=== PATIENT | male | born 1970 | race Caucasian/White ===

== ENCOUNTER 2016-12-29 22:31 | Inpatient (IN) | payer MEDICARE, OTHER ==
[~2016-12-29] VITALS: Ht 190.5 cm; Wt 103.0 kg
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
[2016-12-29 23:13] VITALS: BP 145/68; PULSE 88; RESP 20; TEMP 98; O2SAT 98
[2016-12-29 23:15] VITALS: BP 148/72; PULSE 88; RESP 20; O2SAT 98
[2016-12-29 23:38] LABS: AUTOMATED NEUTROPHIL # 7.4 TH/MM3 (1.8-7.7); BASOPHIL % 0.2 % (0.0-2.0); EOSINOPHIL # 0.1 TH/MM3 (0-0.4); EOSINOPHIL % 0.7 % (0.0-4.0); HEMATOCRIT 49.1 % (39.0-51.0); HEMO FLAGS DIFF FINAL; LYMPH % 20.4 % (9.0-44.0); LYMPHOCYTE # 2.2 TH/MM3 (1.0-4.8); MEAN CELL VOLUME 91.3 FL (80.0-100.0); MEAN CORPUSCULAR HEMOGLOBIN 30.3 PG (27.0-34.0); MEAN CORPUSCULAR HGB CONC 33.2 % (32.0-36.0); MONO % 9.4 % (0.0-8.0); NEUT % 69.3 % (16.0-70.0); PLATELET COUNT 158 TH/MM3 (150-450); RED BLOOD COUNT 5.37 MIL/MM3 (4.50-5.90); RED CELL DISTRIBUTION WIDTH 13.3 % (11.6-17.2); WHITE BLOOD COUNT 10.6 TH/MM3 (4.0-11.0)
[2016-12-29 23:43] LABS: AMPHETAMINE, URINE NEG (NEG); BARBITURATES, URINE NEG (NEG)
[2016-12-29 23:47] LABS: COCAINE, URINE NEG (NEG)
[2016-12-29 23:51] LABS: ANION GAP 12 MEQ/L (5-15)
[2016-12-29 23:54] LABS: ALKALINE PHOSPHATASE 70 U/L (45-117); ALT (GPT) 29 U/L (12-78); AST (GOT) 11 U/L (15-37); BLOOD UREA NITROGEN 14 MG/DL (7-18); CHLORIDE 107 MEQ/L (98-107); GLOMERULAR FILTRATION RATE 86 ML/MIN (>89); POTASSIUM 3.5 MEQ/L (3.5-5.1); SODIUM (NA) 142 MEQ/L (136-145); TOTAL BILIRUBIN ADULT 0.3 MG/DL (0.2-1.0)
[2016-12-30 01:19] VITALS: BP 169/95; PULSE 88; RESP 18; TEMP 97.4; O2SAT 99
[2016-12-30 06:16] VITALS: BP 145/91; PULSE 78; RESP 18; TEMP 97.2; O2SAT 97
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
[2016-12-30] MEDS ORDERED: MAGNESIUM HYDROXIDE SUSP 30 ML CUP PO PRN (12:45)
[2016-12-30] MEDS ORDERED: ALUMINUM/MAGNESIUM/SIMETH 30 ML CUP PO PRN (12:45)
[2016-12-30] MEDS ORDERED: ACETAMINOPHEN 325 MG TAB PO PRN (12:45)
[2016-12-30 15:46] VITALS: BP 143/71; PULSE 66; RESP 18; TEMP 99.1; O2SAT 100
[2016-12-30 19:16] VITALS: BP 144/75; PULSE 83; RESP 16; TEMP 99.1; O2SAT 98
[2016-12-30] MEDS: traZODone HCL 50 MG TAB PO PRN (22:07)
[2016-12-31 06:15] VITALS: BP 115/56; PULSE 51; RESP 16; TEMP 97.5; O2SAT 96
[2016-12-31 08:05] LABS: ANION GAP 7 MEQ/L (5-15); BICARBONATE 28.8 MEQ/L (21.0-32.0); BLOOD UREA NITROGEN 14 MG/DL (7-18); CHLORIDE 106 MEQ/L (98-107); GLOMERULAR FILTRATION RATE 99 ML/MIN (>89); HDL CHOLESTEROL 37.8 MG/DL (40.0-60.0); LDL CHOLESTEROL 149 MG/DL (0-99); POTASSIUM 3.9 MEQ/L (3.5-5.1); SODIUM (NA) 142 MEQ/L (136-145)
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
[2016-12-31] MEDS: FLUoxetine HCL 20 MG CAP PO SCH (14:12)
[2016-12-31 19:00] VITALS: BP 122/63; PULSE 104; RESP 19; TEMP 98
[2016-12-31] MEDS: clonazePAM 1 MG TAB PO SCH (20:40)
[2016-12-31] MEDS: DIVALPROEX SODIUM E.R. 500 MG TAB PO SCH (20:40)
[2017-01-01 05:38] VITALS: BP 150/74; PULSE 90; RESP 17; TEMP 98.6
[2017-01-01] MEDS: clonazePAM 1 MG TAB PO SCH ×2 (08:59→20:30)
[2017-01-01] MEDS: FLUoxetine HCL 20 MG CAP PO SCH (08:59)
[2017-01-01 09:29] LABS: HEMOGLOBIN A1b 1.7 %; HEMOGLOBIN Ao 84.2 %; HEMOGLOBIN LA1C 2.2 %
--- NOTE | 2017-01-01 12:09 | HHI.PYPN ---
Subjective Remarks Pt seen and discussed with staff. Pt was transferred to 2700 unit yesterday after he became agitated and aggressive on 2600 unit. Pt signed ROR, but now states that he wishes to remain in the hospital for treatment. "I can't go out like this. It's not safe." He started Depakote last night and reports that for the first time in weeks, he slept through the night. "It was wonderful. I haven' t been sleeping at all for the past weeks and before that I never really slept good." He reports long hx of mood lability and agitation and non-compliance with outpatient care. He reports he is "ready to get help this time." Staff report that pt has been in better behavioral control today. He remains irritable and is still somewhat labile, but improved. He denies medication side effects. Objective Alert: Yes [place]: Person, Place, Date, Situation Mood: Depressed, Other (irritable) Affect: Restricted Memory Intact: Comment (intact) Hallucinations: Other (none) Delusions: No Delusion Type: Other (none) Suicidal: Ideation (denies) Homicidal: Ideation (denies) Insight/Judgement limited Vitals/IOs Vital Signs Date Time Temp Pulse Resp B/P Pulse Ox O2 Delivery O2 Flow Rate FiO2 01/01/17 05:38 98.6 90 17 150/74 12/31/16 06:15 96 12/30/16 06:16 Room Air Assessment & Plan Problem List: (1) Major depression, recurrent, chronic ICD Code: F33.9 Assessment & Plan Continue current tx plan. Estimated LOS: days Justification for Cont. Inpt. impairments in safety and social functioning Dian Gayle MD Jan 01, 2017 12:09
[2017-01-01 17:04] VITALS: BP 147/57; PULSE 74; RESP 18; TEMP 97.8; O2SAT 98
[2017-01-01] MEDS: DIVALPROEX SODIUM E.R. 500 MG TAB PO SCH (20:30)
[2017-01-01] MEDS: traZODone HCL 50 MG TAB PO PRN (20:31)
[2017-01-02] MEDS: clonazePAM 1 MG TAB PO SCH ×3 (08:44→20:16)
[2017-01-02] MEDS: FLUoxetine HCL 20 MG CAP PO SCH (08:44)
[2017-01-02 08:46] VITALS: BP 137/81; PULSE 83; RESP 20; TEMP 97.9; O2SAT 97
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
[2017-01-02 17:56] VITALS: BP 140/66; PULSE 87; RESP 18; TEMP 97.6; O2SAT 95
[2017-01-02] MEDS: DIVALPROEX SODIUM E.R. 500 MG TAB PO SCH (20:16)
[2017-01-02] MEDS: traZODone HCL 50 MG TAB PO PRN (20:16)
[2017-01-03] MEDS: clonazePAM 1 MG TAB PO SCH ×3 (09:10→20:20)
[2017-01-03] MEDS: FLUoxetine HCL 10 MG CAP PO SCH (09:11)
--- NOTE | 2017-01-03 14:15 | HHI.PYPN ---
Subjective Remarks Patient seen and examined. Chart reviewed. Nursing notes reviewed. On my examination today, the patient reports that he is pleased to be back on the lower acuity unit. He is doing well on the unit. Anxiety/irritability lessening. No SI or HI. Denies side effects from medications. He is worried about the cost of the Depakote ER as he does not have pharmacy benefits, and we discuss switching to less costly Depakote DR, and the patient is in agreement with this. Hopeful for discharge tomorrow. Review of Systems Other No physical complaints today. Objective Alert: Yes [place]: Person, Place, Date, Situation Mood: Calm Affect: Blunted Memory Intact: Comment (intact on clinical exam) Hallucinations: Other (no AVH) Delusions: No Delusion Type: Other (no delusions) Suicidal: Ideation (no SI) Homicidal: Ideation (no HI) Insight/Judgement Fair Remarks No abnormal motor movements noted. Thought process linear. Labs Labs reviewed. No new labs. Vitals/IOs Vital Signs Date Time Temp Pulse Resp B/P Pulse Ox O2 Delivery O2 Flow Rate FiO2 01/02/17 17:56 97.6 87 18 140/66 95 Assessment & Plan Problem List: (1) Anxiety disorder ICD Code: F41.9 (2) Intermittent explosive disorder ICD Code: F63.81 Assessment & Plan Switch Depakote ER to Depakote DR 500 mg twice daily. Continue other psychotropics as ordered. Continue other medications and care as ordered. Justification for Cont. Inpt. Monitor overnight. Final discharge planning. Discharge Planning Monitor overnight. Anticipate discharge tomorrow barring some clinical worsening. I have instructed the counselor to arrange for psychiatric follow- up as well as transportation for the patient back to his home. Request HC Surrog/Guard Advoc?: No Problem Qualifiers (1) Anxiety disorder: Qualified Code: F41.3 - Other mixed anxiety disorders Jose Lou MD Jan 03, 2017 14:15
[2017-01-03 17:23] VITALS: BP 142/72; PULSE 77; RESP 16; TEMP 98.3; O2SAT 96
[2017-01-03] MEDS: DIVALPROEX DR 500 MG TABEC PO SCH (20:20)
[2017-01-03] MEDS: traZODone HCL 50 MG TAB PO PRN (21:05)
[2017-01-04 04:00] VITALS: BP 118/57; PULSE 67; RESP 18; TEMP 98.1; O2SAT 96
[2017-01-04] MEDS: DIVALPROEX DR 500 MG TABEC PO SCH (08:48)
[2017-01-04] MEDS: FLUoxetine HCL 10 MG CAP PO SCH (08:49)
[2017-01-04] MEDS: clonazePAM 1 MG TAB PO SCH ×2 (08:49→12:34)
[2017-01-04] MEDS ORDERED: CLON1 PO ×2 (10:41→11:03)
[2017-01-04] MEDS ORDERED: FLUO-1 PO (10:41)
[2017-01-04] MEDS ORDERED: DIVA500T PO (10:41)
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
== END 2017-01-04 14:30 | disposition home or self-care (01) | DRG 883 ==
LOC: NEPA 22:31 → NEDA 12-30 12:38 → H260 12-30 15:10 → H270 12-31 15:56 → H260 01-02 22:16
PROVIDERS: ADMIT Psychiatry & Neurology Psychiatry; ATTEND Psychiatry & Neurology Psychiatry
DX: F63.81 Intermittent explosive disorder (principal); F41.9 Anxiety disorder, unspecified; F19.10 Other psychoactive substance abuse, uncomplicated; F60.2 Antisocial personality disorder; F60.81 Narcissistic personality disorder
CPT/HCPCS: 80048; 80053; 80061; 80307; 83036; 85025; 99285

== ENCOUNTER 2018-02-14 13:47 | Inpatient (IN) | payer MEDICARE, OTHER ==
[~2018-02-14] VITALS: Ht 190.5 cm; Wt 105.5 kg
[2018-02-14] VITALS (10 sets, daily range): BP systolic 132–143; BP diastolic 70–88; PULSE 83–104; RESP 18–20; TEMP 98–98.3; O2SAT 96–99
[~2018-02-14 13:47] MED LIST: CLON1 PO; DIVA500T PO; FLUO-1 PO
[2018-02-14] MEDS ORDERED: SODIUM CHLOR 0.9% 1000 ML INJ 1,000 ML IV ONE ×2 (14:30→14:45)
--- NOTE | 2018-02-14 14:40 | RADRPT ---
EXAM DATE/TIME: 02/14/2018 14:05 [facility] COMPARISON: No previous studies available for comparison. INDICATIONS : Syncopal episode with fall RADIATION DOSE: 67.23 CTDIvol (mGy) MEDICAL HISTORY : None SURGICAL HISTORY : None. ENCOUNTER: Initial ACUITY: 1 day PAIN SCALE: 0/10 LOCATION: cranial TECHNIQUE: Multiple contiguous axial images were obtained of the head. Using automated exposure control and adj ustment of the mA and/or kV according to patient size, radiation dose was kept as low as reasonably a chievable to obtain optimal diagnostic quality images. DICOM format image data is available electro nically for review and comparison. FINDINGS: CEREBRUM: The ventricles are normal for age. No evidence of midline shift, mass lesion, hemorrhage or acute in farction. No extra-axial fluid collections are seen. POSTERIOR FOSSA: The cerebellum and brainstem are intact. The 4th ventricle is midline. The cerebellopontine angle i s unremarkable. EXTRACRANIAL: The visualized portion of the orbits is intact. SKULL: The calvaria is intact. No evidence of skull fracture. CONCLUSION: 1. No acute intracranial abnormality identified. Chuckie Pacheco MD on February 14, 2018 at 14:36 Board Certified Radiologist. This report was verified electronically.
--- NOTE | 2018-02-14 14:43 | PD ---
HPI Chief Complaint: Chest Pain Time Seen by Provider: 13:51 Travel History International Travel<30 days: No Contact w/Intl Traveler<30days: No Traveled to known affect area: No History of Present Illness HPI 47 y/o male states that he was mowing the lawn and developed chest pain. He developed a syncopal episode and had a witnessed approximately 15 second episode of seizure. After the seizure he was awake and talking without a postictal phase per the ambulance team that got this information from bystanders. He is complaining again about his chest and his neck and was placed in a c-collar. He presented as a STEMI alert given he had changes on his EKG that were concerning. History is limited from patient as he does not recall syncopal event. PFSH Past Medical History Bipolar Disorder: Yes Anxiety: Yes Depression: Yes Cancer: No Cardiovascular Problems: No Diabetes: No Diminished Hearing: No Endocrine: Yes Gastrointestinal Disorders: No Genitourinary: No Headaches: No Heparin Induced Thrombocytopen: No Hypertension: Yes Immune Disorder: No Implanted Vascular Access Dvce: No Musculoskeletal: No Neurologic: No Psychiatric: Yes (Intermittent Explosive Disorder ) Reproductive: No Respiratory: No Immunizations Current: Yes Seizures: No Sickle Cell Disease: No Tetanus Vaccination: Unknown Past Surgical History Abdominal Surgery: Yes (EXPL. SURGERY) Cardiac Surgery: No Ear Surgery: No Endocrine Surgery: No Eye Surgery: No Genitourinary Surgery: No Gynecologic Surgery: No Neurologic Surgery: No Oral Surgery: No Thoracic Surgery: No Other Surgery: Yes Social History Alcohol Use: Yes (ON OCCASION) Tobacco Use: No Substance Use: Yes (MARIJUANA AT TIMES) Allergies-Medications (Allergen,Severity, Reaction): Coded Allergies: No Known Allergies (Unverified Allergy, Unknown, 02/14/18) Reported Meds & Prescriptions Reported Meds & Active Scripts Active No Active Prescriptions or Reported Medications Review of Systems Except as stated in HPI: all other systems reviewed are Neg Physical Exam Narrative GENERAL: 47 y/o male in no apparent distress SKIN: Focused skin assessment warm/dry. HEAD: Atraumatic. Normocephalic. EYES: Pupils equal and round. No scleral icterus. No injection or drainage. ENT: No nasal bleeding or discharge. Mucous membranes pink and moist. NECK: Trachea midline. CARDIOVASCULAR: Regular rate and rhythm. No murmur appreciated. RESPIRATORY: No accessory muscle use. Clear to auscultation. Breath sounds equal bilaterally. GASTROINTESTINAL: Abdomen soft, non-tender, nondistended. MUSCULOSKELETAL: No obvious deformities. No clubbing. No cyanosis. No edema. NEUROLOGICAL: Awake and alert. No obvious cranial nerve deficits. Motor grossly within normal limits. Normal speech. PSYCHIATRIC: Appropriate mood and affect; insight and judgment normal. Data Data Last Documented VS Vital Signs Date Time Temp Pulse Resp B/P (MAP) Pulse Ox O2 Delivery O2 Flow Rate FiO2 02/14/18 14:28 87 20 132/70 (90) 97 Nasal Cannula 2.00 02/14/18 13:49 98.3 Orders Orders Magnesium (Mg) (02/14/18 13:51) Phosphorus (Po4) (02/14/18 13:51) Complete Blood Count With Diff (02/14/18 13:51) Comprehensive Metabolic Panel (02/14/18 13:51) Ckmb (Isoenzyme) Profile (02/14/18 13:51) Troponin I (02/14/18 13:51) Act Partial Throm Time (Ptt) (02/14/18 13:51) Prothrombin Time / Inr (Pt) (02/14/18 13:51) Ct Brain W/O Iv Contrast(Rout) (02/14/18 ) Chest, Single Ap (02/14/18 ) Electrocardiogram (02/14/18 ) Iv Access Insert/Monitor (02/14/18 13:51) Ecg Monitoring (02/14/18 13:51) Oximetry (02/14/18 13:51) Ct Cerv Spine W/O Contrast (02/14/18 ) I-Stat Profile (02/14/18 13:55) I-Stat Creatinine (02/14/18 13:55) Consult Cardiology (02/14/18 ) (Hub Use Only)Inp Phy Cons/Ref (02/14/18 ) I-Stat Creatinine (02/14/18 14:23) Drug Screen, Random Urine (02/14/18 14:27) Sodium Chlor 0.9% 1000 Ml Inj (Ns 1000 M (02/14/18 14:30) Nitroglycerin-D5w 50 Mg/250 Ml (Nitrogly (02/14/18 16:00) Sodium Chlor 0.9% 1000 Ml Inj (Ns 1000 M (02/14/18 14:45) Cardiac Catheterization (02/14/18 ) Admit Order (Ed Use Only) (02/14/18 14:57) Labs Laboratory Tests Test 02/14/18 14:30 White Blood Count 13.5 TH/MM3 Red Blood Count 4.44 MIL/MM3 Hemoglobin 13.8 GM/DL Hematocrit 40.9 % Mean Corpuscular Volume 92.1 FL Mean Corpuscular Hemoglobin 31.2 PG Mean Corpuscular Hemoglobin Concent 33.9 % Red Cell Distribution Width 12.9 % Platelet Count 175 TH/MM3 Mean Platelet Volume 8.5 FL Neutrophils (%) (Auto) 84.1 % Lymphocytes (%) (Auto) 9.6 % Monocytes (%) (Auto) 5.5 % Eosinophils (%) (Auto) 0.3 % Basophils (%) (Auto) 0.5 % Neutrophils # (Auto) 11.4 TH/MM3 Lymphocytes # (Auto) 1.3 TH/MM3 Monocytes # (Auto) 0.7 TH/MM3 Eosinophils # (Auto) 0.0 TH/MM3 Basophils # (Auto) 0.1 TH/MM3 CBC Comment DIFF FINAL Differential Comment Bedside Creatinine 2.1 MG/DL [facility] Medical Decision Making Medical Screen Exam Complete: Yes Emergency Medical Condition: Yes Medical Record Reviewed: Yes ([facility] confirmed) Interpretation(s) EMS EKG is sinus rhythm at 100, hyperacute T V2, mild ST depression aVR and lead I ER EKG is sinus rhythm at 100 without STEMI criteria, similar changes to EMS EKG although less pronounced I stats reviewed and K is elevated likely to hemolysis and on repeat is normal. Creatinine is elevated at 2.2 which was still this on repeat CBC & BMP Diagram 02/14/18 14:30 Last [address] 02/14/18 0000 Signed Impressions: Service Date/Time: Wednesday, February 14, 2018 14:05 - CONCLUSION: 1. No acute intracranial abnormality identified. Chuckie Pacheco MD Differential Diagnosis RI, arrhythmia, bleed, electrolyte abnormality, vasospasm Narrative Course Will check I stats and discuss with hr generalist given concerning story although EKG does not show STEMI here. Patient updated after CT and agrees to cardiac catheterization and admission. Nitroglycerin drip ordered for pain. Critical Care Narrative Aggregate critical care time was 45 minutes. Time to perform other separately billable procedures was not included in the critical care time. My time did not include minutes spent treating any other patients simultaneously or on activities that did not directly contribute to the patient's treatment. The services I provided to this patient were to treat and/or prevent clinically significant deterioration that could result in: mi, I provided critical care services requiring my management, as noted below: Chart data review, documentation time, medication orders and management, vital sign assessments/reviewing monitor data, ordering and reviewing lab tests, ordering and interpreting/reviewing x-rays and diagnostic studies, care of the patient and discussion of the patient with the admitting physicians. Physician Communication Physician Communication dr fregoso states will take for urgent cath after ct, no stemi on ekg dr fregoso updated about labs, given story will need cardiac intervention still discussed with radiologist at 1438 and states no bleed or fracture on imaging dr fregoso updated at bedside, will give meds in labor law professor dr hurd agrees to admit Diagnosis Primary Impression: Chest pain Qualified Codes: R07.9 - Chest pain, unspecified Additional Impression: Syncope Qualified Codes: R55 - Syncope and collapse Admitting Information Admitting Physician Requests: Observation Scripts No Active Prescriptions or Reported Meds Iris Tariq MD February 14, 2018 14:43
[2018-02-14 14:49] LABS: AUTOMATED NEUTROPHIL # 11.4 TH/MM3 (1.8-7.7); BASOPHIL # 0.1 TH/MM3 (0-0.2); BASOPHIL % 0.5 % (0.0-2.0); EOSINOPHIL % 0.3 % (0.0-4.0); HEMATOCRIT 40.9 % (39.0-51.0); HEMOGLOBIN 13.8 GM/DL (13.0-17.0); LYMPH % 9.6 % (9.0-44.0); LYMPHOCYTE # 1.3 TH/MM3 (1.0-4.8); MEAN CELL VOLUME 92.1 FL (80.0-100.0); MEAN CORPUSCULAR HEMOGLOBIN 31.2 PG (27.0-34.0); MEAN CORPUSCULAR HGB CONC 33.9 % (32.0-36.0); MEAN PLATELET VOLUME 8.5 FL (7.0-11.0); MONO % 5.5 % (0.0-8.0); MONOCYTE # 0.7 TH/MM3 (0-0.9); NEUT % 84.1 % (16.0-70.0); PLATELET COUNT 175 TH/MM3 (150-450); RED BLOOD COUNT 4.44 MIL/MM3 (4.50-5.90); RED CELL DISTRIBUTION WIDTH 12.9 % (11.6-17.2); WHITE BLOOD COUNT 13.5 TH/MM3 (4.0-11.0)
--- NOTE | 2018-02-14 14:54 | RADRPT ---
EXAM DATE/TIME: 02/14/2018 14:43 [facility] COMPARISON: No previous studies available for comparison. INDICATIONS : Syncope,. MEDICAL HISTORY : None. SURGICAL HISTORY : None. ENCOUNTER: Initial ACUITY: 1 day PAIN SCORE: 0/10 LOCATION: Bilateral cranial FINDINGS: A single view of the chest demonstrates the lungs to be symmetrically aerated without evidence of mas s, infiltrate or effusion. The cardiomediastinal contours are unremarkable. Osseous structures are intact. CONCLUSION: 1. No acute cardiopulmonary disease. Ryan Doshi MD on February 14, 2018 at 14:52 Board Certified Radiologist. This report was verified electronically.
--- NOTE | 2018-02-14 14:54 | RADRPT ---
EXAM DATE/TIME: 02/14/2018 14:05 [facility] COMPARISON: No previous studies available for comparison. INDICATIONS : Syncopal episode with fall RADIATION DOSE: 18.13 CTDIvol (mGy) MEDICAL HISTORY : None SURGICAL HISTORY : None. ENCOUNTER: Initial ACUITY: 1 day PAIN SCALE: 0/10 LOCATION: neck TECHNIQUE: Volumetric scanning of the cervical spine was performed. Multiplanar reconstructions in the sagittal, coronal and oblique axial planes were performed. Using automated exposure control and adjustment o f the mA and/or kV according to patient size, radiation dose was kept as low as reasonably achievable to obtain optimal diagnostic quality images. DICOM format image data is available electronically f or review and comparison. FINDINGS: There is normal sagittal spine alignment of the cervical spine. No anterolisthesis or retrolisthesis is present. The atlantoaxial relationship is within normal limits. There is no prevertebral soft tiss ue swelling present. No fracture or dislocation is identified. There is decreased disc height at C5-C 6 and more severely at C6-C7 with posterior disc osteophyte complex. No definite canal stenosis is se en. The visualized portions of the posterior fossa, paraspinous soft tissues, and upper lung zones demons trate no acute abnormality. CONCLUSION: 1. No acute cervical spine abnormality is identified. 2. There is degenerative disc disease at C5-C6 and C6-C7. El Jarrell MD on February 14, 2018 at 14:38 Board Certified Radiologist. This report was verified electronically.
[2018-02-14] MEDS ORDERED: IOHEXOL 350 MG/ML 50 ML BTL (for Cath Lab) OTHER ONE (14:59)
[2018-02-14 15:09] LABS: INTERNATIONAL NORMALIZED RATIO 1.1 RATIO
[2018-02-14] MEDS ORDERED: HEPARIN-NS/PF FLUSH BAG 2,000 ML IV FLUSH ONE (15:09)
[2018-02-14] MEDS ORDERED: MIDAZOLAM HCL 2 MG/2 ML VIAL ONE (15:11)
[2018-02-14] MEDS ORDERED: LIDOCAINE HCL 1% PF 30 ML VIAL ONE (15:14)
--- NOTE | 2018-02-14 15:25 | HHI.HP ---
HPI Service [facility] Primary Care Physician Unknown Admission Diagnosis chest pain, syncope Diagnoses: Chief Complaint: chest pain , syncope Travel History International Travel<30 Days: No Contact w/Intl Traveler <30 Da: No Traveled to Known Affected Are: No History of Present Illness 47-year-old male with significant psychiatry history presented to the ED today with chest pain and syncope event. Patient was doing mowing the lawn when he developed chest pain, lasted for a few minutes patient felt dizzy, the pain was more in the center toward the right 7-8 out of 10 More of heaviness pressure feeling, later on patient fainted for probably 30 seconds and then he woke up according to the witnesses who told the ED physician patient was having some possible jerking movement, his EKG showed some ST elevation in lead I and AVl, cardiology consulted from ED he did not think this is a STEMI alert as initially patient was presented with, but due to the syncope that might be an arrhythmia so patient is going to cath at this point by this time I am doing this dictation. When I saw the patient he was in next nebulizer due to the syncope and falling down, CT of the head showed no bleeding, no other associating symptoms has been reported by the patient, I also discussed with Dr. Duran the stage producer Past Family Social History Past Medical History Bipolar Anxiety Depression Hypertension Abdominal exploratory surgery Past Surgical History As above Allergies: Coded Allergies: No Known Allergies (Unverified Allergy, Unknown, 02/14/18) Family History Review with the patient,not aware of significant medical history related to her problem runs in the family Social History Denied tobacco alcohol or illicit drug abuse Physical Exam Vital Signs Vital Signs Date Time Temp Pulse Resp B/P (MAP) Pulse Ox O2 Delivery O2 Flow Rate FiO2 02/14/18 14:28 87 20 132/70 (90) 97 Nasal Cannula 2.00 02/14/18 14:00 90 20 97 Nasal Cannula 02/14/18 13:58 97 Nasal Cannula 2.00 02/14/18 13:49 98.3 97 20 143/84 (103) 99 Physical Exam GENERAL: This is a well-nourished, well-developed patient, in no apparent distress. SKIN: No rashes, warm and dry HEAD: Atraumatic. Normocephalic. EYES: Pupils equal round and reactive. Extraocular motions intact. No scleral icterus. ENT: Nose without bleeding, or drainage, Airway patent. NECK: Trachea midline. Supple CARDIOVASCULAR: Regular rate and rhythm without murmurs, gallops, or rubs. RESPIRATORY: Fair air entry bilaterally. No wheezes, rales, or rhonchi. GASTROINTESTINAL: Abdomen soft, non-tender, nondistended. Positive bowel sounds MUSCULOSKELETAL: Extremities without clubbing, cyanosis, or edema. Pedal pulses appreciated NEUROLOGICAL: Awake and alert. Moves all extremity. Normal speech.no focal neurological deficit Laboratory Laboratory Tests Test 02/14/18 14:30 White Blood Count 13.5 Red Blood Count 4.44 Hemoglobin 13.8 Hematocrit 40.9 Mean Corpuscular Volume 92.1 Mean Corpuscular Hemoglobin 31.2 Mean Corpuscular Hemoglobin Concent 33.9 Red Cell Distribution Width 12.9 Platelet Count 175 Mean Platelet Volume 8.5 Neutrophils (%) (Auto) 84.1 Lymphocytes (%) (Auto) 9.6 Monocytes (%) (Auto) 5.5 Eosinophils (%) (Auto) 0.3 Basophils (%) (Auto) 0.5 Neutrophils # (Auto) 11.4 Lymphocytes # (Auto) 1.3 Monocytes # (Auto) 0.7 Eosinophils # (Auto) 0.0 Basophils # (Auto) 0.1 CBC Comment DIFF FINAL Differential Comment Prothrombin Time 11.0 Prothromb Time International Ratio 1.1 Activated Partial Thromboplast Time 23.8 Bedside Creatinine 2.1 Result Diagram: 02/14/18 1430 Imaging Last Impressions Head CT 02/14/18 0000 Signed Impressions: Service Date/Time: Wednesday, February 14, 2018 14:05 - CONCLUSION: 1. No acute intracranial abnormality identified. Chuckie Pacheco MD Chest X-Ray 02/14/18 0000 Signed Impressions: Service Date/Time: Wednesday, February 14, 2018 14:43 - CONCLUSION: 1. No acute cardiopulmonary disease. Ryan Doshi MD Cervical Spine CT 02/14/18 0000 Signed Impressions: Service Date/Time: Wednesday, February 14, 2018 14:05 - CONCLUSION: 1. No acute cervical spine abnormality is identified. 2. There is degenerative disc disease at C5-C6 and C6-C7. MD Quintin Leon VTE Risk Assessment Caprini VTE Risk Assessment: Mod/High Risk (score >= 2) Caprini Risk Assessment Model Point Value = 1 Point Value = 2 Point Value = 3 Point Value = 5 Age 41-60 Minor surgery BMI > 25 kg/m2 Swollen legs Varicose veins or History of unexplained or recurrent spontaneous Oral contraceptives or hormone replacement Sepsis (< 1 month) Serious lung disease, including pneumonia (< 1 month) Abnormal pulmonary function Acute myocardial infarction Congestive heart failure (< 1 month) History of inflammatory bowel disease Medical patient at bed rest Age 61-74 Arthroscopic surgery Major open surgery (> 45 min) Laparoscopic surgery (> 45 min) Malignancy Confined to bed (> 72 hours) Immobilizing plaster cast Central venous access Age >= 75 History of VTE Family history of VTE Factor V Leiden Prothrombin [id number] Lupus anticoagulant Anticardiolipin antibodies Elevated serum homocysteine Heparin-induced thrombocytopenia Other congenital or acquired thrombophilia Stroke (< 1 month) Elective arthroplasty Hip, pelvis, or leg fracture Acute spinal cord injury (< 1 month) Prophylaxis Regimen Total Risk Factor Score Risk Level Prophylaxis Regimen 0-1 Low Early ambulation 2 Moderate Order ONE of the following: *Sequential Compression Device (SCD) *Heparin 5000 units SQ BID 3-4 Higher Order ONE of the following medications: *Heparin 5000 units SQ TID *Enoxaparin/Lovenox 40 mg SQ daily (WT < 150 kg, CrCl > 30 mL/min) *Enoxaparin/Lovenox 30 mg SQ daily (WT < 150 kg, CrCl > 10-29 mL/min) *Enoxaparin/Lovenox 30 mg SQ BID (WT < 150 kg, CrCl > 30 mL/min) AND/OR *Sequential Compression Device (SCD) 5 or more Highest Order ONE of the following medications: *Heparin 5000 units SQ TID (Preferred with Epidurals) *Enoxaparin/Lovenox 40 mg SQ daily (WT < 150 kg, CrCl > 30 mL/min) *Enoxaparin/Lovenox 30 mg SQ daily (WT < 150 kg, CrCl > 10-29 mL/min) *Enoxaparin/Lovenox 30 mg SQ BID (WT < 150 kg, CrCl > 30 mL/min) AND *Sequential Compression Device (SCD) Assessment and Plan Assessment and Plan 47 years old male admitted with Acute chest pain rule out ACS Acute syncope rule out cardiogenic arrhythmia versus seizure History of bipolar disease and anxiety depression DVT prophylaxis Plan: Admit for observation Cardiology consultation appreciated EKG personally reviewed showed mild ST elevation in lead I and aVL, slightly peaked T-wave in lateral leads Discussed with cardiology , does not fit any criteria Oxygen, aspirin, morphine, nitroglycerin Patient pending to urgent heart cath right now CT head personally reviewed no bleeding DVT prophylaxis with heparin when okay with cardiology post heart cath Discussed Condition With Physician in ED Arie Corbin MD February 14, 2018 15:25
[2018-02-14] MEDS ORDERED: MORPHINE SULFATE 2 MG/ML SYRINGE IV PUSH PRN (15:30)
[2018-02-14] MEDS ORDERED: NALOXONE HCL 0.4 MG/ML AMP IV PUSH PRN (15:30)
[2018-02-14] MEDS ORDERED: ACETAMINOPHEN/HYDROcodone 325 MG/5 MG TAB PO PRN (15:30)
[2018-02-14] MEDS ORDERED: ONDANSETRON HCL 4 MG/2 ML VIAL IVP PRN (15:30)
--- NOTE | 2018-02-14 15:53 | CATHPROC ---
[employer] HIS Report Study Information Study Number Admission Scheduled Start Study Start [id number] Feb 14 2018 1:47PM 02/14/2018 Feb 14 2018 2:47PM [facility] Service Cardiac Catheterization Admit Source Facility Department Emergency department [facility] - [facility] Physician and Clinical Staff Initial MD Duran, Saran Insurance Managerdionisio Ortiz RN, Nikita Recorder Student, ASSET PROTECTION LEAD/RT(R) ScrJasmin Yancey ,RT(R) Procedures Performed Procedure Location (Site) Vessel Name Coronary Angiograms LCA Left Coronary Coronary Angiograms RCA Right Coronary L Heart Cath LV Gram-hand inj. LV LV Ventricle Equipment Time Shaper And Presser Description Size Mfg Part Number Used/Scraped TRANSDUCER, TRUWAVE [id number] 14:48 EMERY MACDONALD * Used W/STOCKCOCK *[id number] *[id number] *[id number] 14:48 [employer] IND[employer] PACK, CCL CUSTOM * Used *[id number] 14:48 [employer] PACER PEN, SKIN DUAL W/ RULER * Used *[id number] 14:48 [employer] WIRE, 3MMJ .035 180CM 180CM Used *[id number] 14:48 NAMIC MANIFOLD, 4 PORT * Used *[id number] 14:48 NYCOMED OMNIPAQUE, 350 MG, 150ML 150ML [id number] 14:48 [employer] MED[employer] BLANKET,WARM AIR CCL * Used *[id number] 14:48 TERUMO MEDICAL SHEATH, FR4 TERUMO (10CM) FR 4 Used *[id number] History: Allergies Allergy Reaction No Known Allergies History: Risk Factors Family History of Hypertension Dyslipidemia Previous NC Previous Heart Failure Premature CAD No No No No No Prior Valve Prior PCI Prior CABG Surgery No No No Cerebrovascular Peripheral Artery Chronic Lung On Dialysis Diabetes Disease Disease Disease No No No No No History: Symptoms/Diagnosis Selection Items Chest pain Syncope History: Stress Tests Stress or Imaging Studies Performed No History: Other Current Smoker No Labs Hgb (g/dl) Hct (%) 11.60-17.00 35.00-51.00 13.6 40 Glucose (mg/dl) BUN (mg/dl) Creatinine (mg/dl) BUN:Creatinine (1:x) 74.00-106.00 7.00-18.00 0.50-1.30 10.00-20.00 159 29 2.2 13.2 Na (meq/l) K (meq/l) 136.00-145.00 3.50-5.10 140 3.9 Medication Medication Total Dose (Bolus/Oral) Medication Total Dosage/Unit 1% XYLOCAINE 20 mL VERSED 2 mg Medications (Bolus/Oral) Medication Time Given Dosage/Unit Administered By Reason 1% XYLOCAINE 02/14/2018 3:22:55 PM 20 mL Saran Duran 20 mL 1% XYLOCAINE given in lab by Saran Duran in Left Wrist via Subcutaneous. VERSED 02/14/2018 3:24:14 PM 2 mg Nikita Ortiz RN 2 mg VERSED given in lab by Nikita Ortiz RN in Left Wrist via Peripheral IV. Ordered by Gaurav Duran. Medication (Drip) Medication Time Given Dosage/Unit Concentration/Unit Diluent (ml) Solutio n IV Solutions 02/14/2018 3:03:32 PM 50 mL (IV) NaCl .9 IV Solutions given in lab by Nikita Ortiz RN in Left Hand via Peripheral IV. Pump/Drip Flow using NaC l .9. Initial Case Assessment Cardiovascular HR Rhythm NIBP Chest Pain 87 SR 126/71 0 Edema Present Skin color Skin None Normal Warm Dry Circulatory - Right Pulses Dorsalis Pedis Femoral 1 1 Scale (0,1,2,3,4,d) Circulatory - Left Pulses Dorsalis Pedis Femoral 1 1 Scale (0,1,2,3,4,d) Neurological State Oriented to time-place- Alert Moves all extremities person Respiration - General Respiration Rate SpO2 (%) (B/min) 18 97 Chronological Log Time Study Chronological Log 15:03:10 Patient arrived via Bed. 15:03:10 Patient Name, D.O.B, / Armband Verified By R.N. 15:03:11 Consent signed by the physician and the patient and verified by the Mortgage Banker staff. 15:03:12 Pre-op and post- op instructions given; patient acknowledges understanding of instruction s. 15:03:13 Verbal Stimulation=2 Physical Stimulation=2 Airway=2 Respiration=2 TOTAL=8. (0=absent, 1= limited, 2=present) 15:03:20 Presedation assessment performed by Mortgage Banker RN. 15:03:26 Patient has been NPO for Less than 6Hrs. 15:03:27 Skin Breakdown- none per pt 15:03:28 Patient Warmer Placed on the Table. 15:03:29 Patrick Prominences Protected 15:03:31 A # 18 IV was noted in the Hand (left). Grade = 0 15:03:31 A # 18 IV was noted in the Antecubital (right). Grade = 0 15:03:32 IV Solutions given in lab by Nikita Ortiz RN in Left Hand via Peripheral IV. Pump/Drip Flow using NaCl .9. 15:03:33 History and physical on the chart or being dictated. Assessment: Initial Case, HR=87 BPM, Rhythm=SR, OFUL=689/71 mmhg, Chest Pain=0, Edema=None, Col or=Normal, Skin = Warm, Dry Right Pulses: Walker Ped=1, Femoral=1 15:03:34 Left Pulses: Walker Ped=1, Femoral=1 Neurological: State=Alert, Ox3, MALDONADO Respiration: Resp=18 B/min, SpO2=97 % Vitals capture started with the following parameters, Patient=Adult, Interval=5 min, Initial Pr rbtmba=761 mmHg, 15:07:11 Deflation Rate=5 mmHg, Cuff placed on Left Arm 15:07:53 HR=97 bpm, OCTR=242/71 mmhg, SpO2=97.0 %, Resp=20 B/min 15:10:03 Reference ECG taken 15:12:46 Bilateral groins prepped with 2% chlorhexidine, and draped after a 3 minute waiting time. 15:12:54 HR=86 bpm, WAMC=236/72 mmhg, SpO2=98.0 %, Resp=16 B/min 15:14:30 MD paged 15:16:03 MD responded 15:17:29 Pressure channel 1 zeroed. 15:17:55 HR=93 bpm, WJBH=956/64 mmhg, SpO2=96.0 %, Resp=23 B/min 15:18:22 MD arrived. Time Out. Correct patient, correct procedure, correct physician, power injector not loaded with contrast with surgical 15:21:53 team present. Time Out Concurred by MD and individual staff in procedure. 15:22:50 Case Start 15:22:54 HR=89 bpm, UFSN=217/64 mmhg, SpO2=96.0 %, Resp=16 B/min 15:22:55 20 mL 1% XYLOCAINE given in lab by Saran Duran in Left Wrist via Subcutaneous. 15:24:14 2 mg VERSED given in lab by Nikita Ortiz RN in Left Wrist via Peripheral IV. Ordered by Saran Marcus. 15:24:38 Access site was Right Femoral Artery. 15:24:43 A SHEATH, FR4 TERUMO (10CM) FR 4 was advanced into the Fem Art (right) using the Percutaneo us technique. A JR 4.0 INFINITI CATHETER FR 4 was advanced over a wire. OMNIPAQUE, 350 MG, 150ML 150ML was us ed for 15:25:37 injections. Recorded Pressure: LV, HR=96, Condition=Condition 1 15:26:43 (Left Ventricle) LV 100/1/10 15:27:04 The LV was manually injected with 8 cc's and visualized. OMNIPAQUE, 350 MG, 150ML 150ML use d. 15:27:21 The RCA was injected and visualized at various angles. OMNIPAQUE, 350 MG, 150ML 150ML used . 15:27:40 Catheter was removed 15:27:55 HR=91 bpm, WBXO=239/61 mmhg, SpO2=95.0 %, Resp=15 B/min A JL 4.0 INFINITI CATHETER FR 4 was advanced over a wire. OMNIPAQUE, 350 MG, 150ML 150ML was us ed for 15:28:26 injections. Recorded Pressure: Ao, HR=97, Condition=Condition 1 15:28:49 (Aorta) Ao 91/62/74 15:29:16 The LCA was injected and visualized at various angles. OMNIPAQUE, 350 MG, 150ML 150ML used . 15:30:17 Catheter was removed 15:: Case End 15:32:54 HR=93 bpm, AUQL=440/69 mmhg, SpO2=95.0 %, Resp=24 B/min 15:36:14 Sheath removed; pressure applied to access site. 15:37:42 No case complications noted. 15:37:44 Cine recording checked. 15:37:49 Report called to floor. 15:37:53 HR=90 bpm, UMXR=478/71 mmhg, SpO2=97.0 %, Resp=9 B/min 15:37:53 A Left Heart Cath was performed. 15:42:54 HR=92 bpm, OXWY=580/76 mmhg, SpO2=99.0 %, Resp=15 B/min 15:47:53 HR=87 bpm, EQVQ=041/82 mmhg, SpO2=98.0 %, Resp=20 B/min 15:52:20 Sterile dressing applied to site 15:52:26 Vitals capture stopped. 15:55:00 Patient moved to stretcher End Study - Contrast Media Used In Study Contrast Total Opened (mL) Total Used (mL) Total Wasted (mL) Omnipaque 30 30 0 End Study - Maximum Contrast Load Max Contrast Load (mL) 238.6 End Study - Radiation Exposure Fluoro Time (minutes) 0.9 End Study - Sheaths Sheaths Pulled By Sheath Hold Time (min) Jasmin Hannon 20 End Study - Patient Disposition Complications Transferred To Interventional Outcome No Telemetry Bed No attempt made
[2018-02-14] MEDS ORDERED: BACITRACIN OINT 0.9 GM PKT TOP ONE (16:00)
[2018-02-14] MEDS ORDERED: MISC INFORMATION XX ONE (16:00)
[2018-02-14] MEDS ORDERED: NITROGLYCERIN-D5W 50 MG/250 ML 250 ML IV ONE (16:00)
[2018-02-14] MEDS ORDERED: SODIUM CHLORIDE 0.9% FLUSH 10 ML FLUSH IV FLUSH PRN (16:00)
--- NOTE | 2018-02-14 16:08 | MA ---
cc: Saran Duran MD DATE: 02/14/2018 PROCEDURE PERFORMED: Left heart catheterization, left ventriculography, coronary arteriography. INDICATIONS: Unstable angina, syncope. [place] Cardiovascular Society class IV angina. Coronary artery disease. PROCEDURE: The patient was brought to the cardiac catheterization laboratory, prepped and draped in the usual sterile fashion. 10 mL of 1% lidocaine was used to locally anesthetized the right common femoral artery, a 4-Grenadian sheath placed in the right common femoral artery, 4-Grenadian JL4 and JR4 catheters were used to perform left and right coronary angiography and left ventriculography. FINDINGS: LV pressures 90/2-4, EF 70%. LV is hyperdynamic with near cavity obliteration in end systole. Right coronary artery is large and dominant. No significant disease angiographically. Left main coronary artery with no significant disease angiographically. The LAD has no significant disease in the proximal segment. There is a focal 20-30% stenosis in the mid-segment. LAD is transapical. First diagonal artery is a medium to large-sized vessel, reference vessel diameter 3 millimeters. No significant disease angiographically. Left circumflex vessel is a large vessel, reference vessel diameter 3.5-4 mm throughout the proximal mid-segment. No focal stenosis. The remainder of the AV groove left circumflex vessel has no significant disease angiographically. There is a high takeoff first obtuse marginal vessel which is a 1.0 mm reference vessel diameter, no significant disease angiographically. Second obtuse marginal vessel has a 0.25-0.5 mm reference vessel diameter, no significant obstructive disease. Third obtuse marginal vessel is a large vessel, reference vessel diameter 3.5 millimeters and no significant disease angiographically. The AV groove left circumflex vessel terminates into a small to medium-sized posterolateral artery which is approximately 2 mm in diameter in the proximal segment. CONCLUSION: 1. Angiographically mild 1 vessel coronary disease in a right dominant system, as detailed above. 2. Dehydration with hyperdynamic left ventricular systolic function, near left ventricular cavity obliteration in end-systole. EF 70%. Left ventricular pressures of 90/2-4. RECOMMENDATIONS: The patient was started on normal saline, 1 liter bolus in the ER. We will continue bolus infusion up to 3 liters of normal saline. Recheck creatinine in the a.m. MD KATY Malloy/STEVEN , 03:38 PM , 04:07 PM
--- NOTE | 2018-02-14 16:25 | MB ---
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 He had head CT and neck CT in the ER which reportedly were negative. There is some concern for hyper-QT waves in the anterior and precordial leads as read by the ER physician, Dr. Tariq. The patient otherwise denies any fevers, chills, cough, GI or bleeding, pain or orthopnea. PAST MEDICAL HISTORY: Per History Of Present Illness. PAST MEDICAL HISTORY: He has a history of anxiety, depression, hypertension, "intermittent explosive disorder". PAST SURGICAL HISTORY: Abdominal surgery, status post "exploratory surgery". SOCIAL HISTORY: Drinks alcohol occasionally. Tobacco use: Denies. Admits to smoking marijuana occasionally. ALLERGIES: None. MEDICATIONS: None prior to admission. In the ER, the patient received aspirin and IV nitro. PHYSICAL EXAMINATION: VITAL SIGNS: Blood pressure 132/70, pulse 87, temperature 98.3, respiratory rate 20, saturations 97% on 2 liters nasal cannula. GENERAL: He is alert and oriented x 3, in no acute distress. NECK: Supple. No JVD or bruit. HEART: S1, S2. No murmurs, rubs or gallops. LUNGS: Clear to auscultation bilaterally. ABDOMEN: Soft, nontender, nondistended with positive bowel sounds. EXTREMITIES: No extremity edema. LABORATORY DATA: White count 13.5, hemoglobin 13.8, hematocrit 40.9, platelet count 175. Creatinine is 2.1. INR 1.1. The rest of the chemistries are pending at the time of dictation. EKG: Normal sinus rhythm at 89 beats per minute, borderline LVH by aVL criteria. T-waves are approximately 7-8 mm in lead V2. The 12-lead EKG in the field showed the T waves were approximately [address]: No acute intracranial abnormality identified. Chest x-ray: No acute cardiopulmonary disease. Cervical Spine CT: No acute cervical spine abnormality is identified. There is degenerative disk disease at C5-C6 and C6-C7. FINAL DIAGNOSES: 1. Unstable angina. 2. [place] Cardiovascular Society class IV angina. 3. Acute renal failure. 4. Dehydration. 5. Syncope. PLAN: I have discussed the case with Dr. Tariq. We both agreed that left heart catheterization is urgently indicated given the syncope associated with chest pain and ongoing chest pain and a slightly abnormal EKG. I explained to the patient the risks of catheterization and PCIs, the 5-10% chance of , stroke, heart attack, bleeding, infection, need for bypass surgery, surgery, dialysis, bleeding, infection, anaphylaxis and arrhythmia. Dictation was done after the heart catheterization, but I performed the history and physical and explained the risks and benefits of the patient prior to the catheterization. MD KATY Malloy/SB , 04:01 PM , 04:23 PM
[2018-02-14 17:03] LABS: ALBUMIN 3.3 GM/DL (3.4-5.0); ALT (GPT) 24 U/L (12-78); AST (GOT) 17 U/L (15-37); BICARBONATE 20.6 MEQ/L (21.0-32.0); BLOOD UREA NITROGEN 23 MG/DL (7-18); CALCIUM 8.3 MG/DL (8.5-10.1); CHLORIDE 110 MEQ/L (98-107); CREATININE 2.14 MG/DL (0.60-1.30); GLOMERULAR FILTRATION RATE 33 ML/MIN (>89); GLUCOSE,RANDOM 156 MG/DL (74-106); MAGNESIUM 1.9 MG/DL (1.5-2.5); PHOSPHORUS 2.8 MG/DL (2.5-4.9); SODIUM (NA) 141 MEQ/L (136-145)
[2018-02-14 17:07] LABS: ALKALINE PHOSPHATASE 66 U/L (45-117); TOTAL BILIRUBIN ADULT 0.3 MG/DL (0.2-1.0); TOTAL PROTEIN 6.4 GM/DL (6.4-8.2); TROPONIN I LESS THAN 0.02 NG/ML (0.02-0.05)
--- NOTE | 2018-02-14 18:02 | RADRPT ---
EXAM DATE/TIME: 02/14/2018 17:17 [facility] COMPARISON: No previous studies available for comparison. INDICATIONS : Syncope. MEDICAL HISTORY : Hypertension. Bipolar disorder. Depression. Anxiety. SURGICAL HISTORY : Exploratory. Right femur surgery. Right elbow surgery. Left foot surgery. ENCOUNTER: Initial ACUITY: 1 day PAIN SCORE: 0/10 LOCATION: Bilateral neck PEAK SYSTOLIC VELOCITIES (cm/sec): ICA/CCA RATIO: Right: 0.7 Left: 0.6 ICA: Right: 73.8 Left: 69.8 CCA: Right: 109.7 Left: 116.3 ECA: Right: 151.2 Left: 143.6 VERTEBRAL: Right: 40.9 antegrade Left: 49.3 antegrade Elevated flow velocities and ICA/CCA ratios have been found to correlate with increased degrees of vessel stenosis, calculated as percentage of diameter relative to a normal segment of distal ICA/CCA FINDINGS: RIGHT CAROTID: Mild intimal thickening at the bifurcation. No significant stenosis is visualized. The waveforms are within normal limits. LEFT CAROTID: Mild intimal thickening at the bifurcation. No significant stenosis is visualized. The waveforms are within normal limits. VERTEBRAL ARTERIES: Antegrade flow is seen in both vertebral arteries. MISCELLANEOUS: None. CONCLUSION: Unremarkable carotid ultrasound for patient's age. Bereket Negrete MD on February 14, 2018 at 17:59 Board Certified Radiologist. This report was verified electronically.
[2018-02-14] MEDS ORDERED: DEXTROSE 50% IN WATER 50 ML VIAL(D50) IV PUSH PRN (19:30)
[2018-02-14] MEDS ORDERED: GLUCAGON 1 MG/ML VIAL OTHER PRN (19:30)
[2018-02-14] MEDS: SODIUM CHLORIDE 0.9% FLUSH 10 ML FLUSH IV FLUSH SCH (21:00)
[2018-02-15] VITALS (24 sets, daily range): BP systolic 137–182; BP diastolic 83–102; PULSE 72–98; RESP 16–22; TEMP 98.2–98.7; O2SAT 96–98
[2018-02-15 06:44] LABS: BASOPHIL # 0.1 TH/MM3 (0-0.2); BASOPHIL % 0.7 % (0.0-2.0); EOSINOPHIL # 0.1 TH/MM3 (0-0.4); EOSINOPHIL % 1.2 % (0.0-4.0); HEMATOCRIT 38.8 % (39.0-51.0); HEMOGLOBIN 13.2 GM/DL (13.0-17.0); LYMPH % 28.7 % (9.0-44.0); LYMPHOCYTE # 2.8 TH/MM3 (1.0-4.8); MEAN CELL VOLUME 92.5 FL (80.0-100.0); MEAN CORPUSCULAR HEMOGLOBIN 31.4 PG (27.0-34.0); MEAN PLATELET VOLUME 8.6 FL (7.0-11.0); MONO % 8.3 % (0.0-8.0); MONOCYTE # 0.8 TH/MM3 (0-0.9); NEUT % 61.1 % (16.0-70.0); PLATELET COUNT 162 TH/MM3 (150-450); RED BLOOD COUNT 4.19 MIL/MM3 (4.50-5.90); RED CELL DISTRIBUTION WIDTH 13.3 % (11.6-17.2); WHITE BLOOD COUNT 9.9 TH/MM3 (4.0-11.0)
[2018-02-15 07:09] LABS: ALBUMIN 2.8 GM/DL (3.4-5.0); CHOLESTEROL/ HDL RATIO 4.3 RATIO; CREATININE 0.74 MG/DL (0.60-1.30); DIRECT BILIRUBIN ADULT 0.1 MG/DL (0.0-0.2); HDL CHOLESTEROL 35.3 MG/DL (40.0-60.0); INDIRECT BILIRUBIN 0.1 MG/DL (0.0-0.8); TOTAL BILIRUBIN ADULT 0.2 MG/DL (0.2-1.0); TOTAL PROTEIN 5.6 GM/DL (6.4-8.2)
[2018-02-15] MEDS: ACETAMINOPHEN/HYDROcodone 325 MG/7.5 MG TAB PO PRN ×2 (07:31→20:26)
[2018-02-15] MEDS ORDERED: ATORVASTATIN 40 MG TAB PO ONE (09:00)
[2018-02-15] MEDS ORDERED: ASPIRIN EC 81 MG TABEC PO ONE (09:00)
--- NOTE | 2018-02-15 10:31 | PD.CARD.PN ---
Subjective Subjective Remarks assymptomatic, in nad, alert Objective Medications Current Medications Medications (Trade) Dose Ordered Sig/Demond Route Start Time Stop Time Status Last Admin Nitroglycerin/ Dextrose 250 ml @ 1.5 mls/hr TITRATE ONCE IV 02/14/18 16:00 02/21/18 14:39 (Zofran Inj) 4 mg Q6H PRN IVP 02/14/18 15:30 ([place] 5-325 Mg) 1 tab Q4H PRN PO 02/14/18 15:30 02/14/18 18:20 ([place] 7.5-325 Mg) 1 tab Q4H PRN PO 02/14/18 15:30 02/15/18 07:31 (Morphine Inj) 4 mg Q3H PRN IV PUSH 02/14/18 15:30 (Narcan Inj) 0.4 mg UNSCH PRN IV PUSH 02/14/18 15:30 (NS Flush) 2 ml BID IV FLUSH 02/14/18 21:00 (NS Flush) 2 ml UNSCH PRN IV FLUSH 02/14/18 16:00 (D50w (Vial) Inj) 50 ml UNSCH PRN IV PUSH 02/14/18 19:30 (Glucagon Inj) 1 mg UNSCH PRN OTHER 02/14/18 19:30 (Ecotrin Ec) 81 mg DAILY PO 02/16/18 09:00 (Lipitor) 40 mg HS PO 02/16/18 21:00 Vital Signs / I&O Vital Signs Date Time Temp Pulse Resp B/P (MAP) Pulse Ox O2 Delivery O2 Flow Rate FiO2 02/15/18 00:00 80 02/15/18 00:00 81 02/14/18 23:00 83 02/14/18 22:00 87 02/14/18 21:00 93 02/14/18 20:00 91 18 140/71 (94) 96 02/14/18 20:00 93 02/14/18 20:00 91 02/14/18 19:00 104 02/14/18 18:00 91 02/14/18 16:15 98.0 85 18 141/88 (105) 98 02/14/18 16:00 90 110/60 02/14/18 14:28 87 20 132/70 (90) 97 Nasal Cannula 2.00 02/14/18 14:00 90 20 97 Nasal Cannula 02/14/18 13:58 97 Nasal Cannula 2.00 02/14/18 13:49 98.3 97 20 143/84 (103) 99 I/O 02/14/18 02/14/18 02/14/18 02/15/18 02/15/18 02/15/18 07:00 15:00 23:00 07:00 15:00 23:00 Intake Total 1720 ml Output Total 2425 ml Balance -705 ml Intake Oral 720 ml IV Total 1000 ml Output Urine Total 2425 ml Physical Exam GENERAL: SKIN: Warm and dry. HEAD: Normocephalic. EYES: No scleral icterus. No injection or drainage. NECK: Supple, trachea midline. No JVD or lymphadenopathy. CARDIOVASCULAR: Regular rate and rhythm without murmurs, gallops, or rubs. RESPIRATORY: Breath sounds equal bilaterally. No accessory muscle use. GASTROINTESTINAL: Abdomen soft, non-tender, nondistended. MUSCULOSKELETAL: No cyanosis, or edema. BACK: Nontender without obvious deformity. No CVA tenderness. Laboratory Laboratory Tests Test 02/14/18 13:55 02/14/18 14:30 02/14/18 16:58 02/14/18 21:31 Blood Urea Nitrogen 23 MG/DL Creatinine 2.14 MG/DL Random Glucose 156 MG/DL Total Protein 6.4 GM/DL Albumin 3.3 GM/DL Calcium Level 8.3 MG/DL Phosphorus Level 2.8 MG/DL Magnesium Level 1.9 MG/DL Alkaline Phosphatase 66 U/L Aspartate Amino Transf (AST/SGOT) 17 U/L Alanine Aminotransferase (ALT/SGPT) 24 U/L Total Bilirubin 0.3 MG/DL Sodium Level 141 MEQ/L Potassium Level 3.8 MEQ/L Chloride Level 110 MEQ/L Carbon Dioxide Level 20.6 MEQ/L Anion Gap 10 MEQ/L Estimat Glomerular Filtration Rate 33 ML/MIN Total Creatine Kinase 82 U/L Troponin I LESS THAN 0.02 NG/ML LESS THAN 0.02 NG/ML LESS THAN 0.02 NG/ML White Blood Count 13.5 TH/MM3 Red Blood Count 4.44 MIL/MM3 Hemoglobin 13.8 GM/DL Hematocrit 40.9 % Mean Corpuscular Volume 92.1 FL Mean Corpuscular Hemoglobin 31.2 PG Mean Corpuscular Hemoglobin Concent 33.9 % Red Cell Distribution Width 12.9 % Platelet Count 175 TH/MM3 Mean Platelet Volume 8.5 FL Neutrophils (%) (Auto) 84.1 % Lymphocytes (%) (Auto) 9.6 % Monocytes (%) (Auto) 5.5 % Eosinophils (%) (Auto) 0.3 % Basophils (%) (Auto) 0.5 % Neutrophils # (Auto) 11.4 TH/MM3 Lymphocytes # (Auto) 1.3 TH/MM3 Monocytes # (Auto) 0.7 TH/MM3 Eosinophils # (Auto) 0.0 TH/MM3 Basophils # (Auto) 0.1 TH/MM3 CBC Comment DIFF FINAL Differential Comment Prothrombin Time 11.0 SEC Prothromb Time International Ratio 1.1 RATIO Activated Partial Thromboplast Time 23.8 SEC Bedside Creatinine 2.1 MG/DL Test 02/15/18 05:37 White Blood Count 9.9 TH/MM3 Red Blood Count 4.19 MIL/MM3 Hemoglobin 13.2 GM/DL Hematocrit 38.8 % Mean Corpuscular Volume 92.5 FL Mean Corpuscular Hemoglobin 31.4 PG Mean Corpuscular Hemoglobin Concent 34.0 % Red Cell Distribution Width 13.3 % Platelet Count 162 TH/MM3 Mean Platelet Volume 8.6 FL Neutrophils (%) (Auto) 61.1 % Lymphocytes (%) (Auto) 28.7 % Monocytes (%) (Auto) 8.3 % Eosinophils (%) (Auto) 1.2 % Basophils (%) (Auto) 0.7 % Neutrophils # (Auto) 6.0 TH/MM3 Lymphocytes # (Auto) 2.8 TH/MM3 Monocytes # (Auto) 0.8 TH/MM3 Eosinophils # (Auto) 0.1 TH/MM3 Basophils # (Auto) 0.1 TH/MM3 CBC Comment DIFF FINAL Differential Comment Blood Urea Nitrogen 15 MG/DL Creatinine 0.74 MG/DL Random Glucose 201 MG/DL Total Protein 5.6 GM/DL Albumin 2.8 GM/DL Calcium Level 8.0 MG/DL Alkaline Phosphatase 71 U/L Aspartate Amino Transf (AST/SGOT) 6 U/L Alanine Aminotransferase (ALT/SGPT) 20 U/L Total Bilirubin 0.2 MG/DL Direct Bilirubin 0.1 MG/DL Sodium Level 143 MEQ/L Potassium Level 3.7 MEQ/L Chloride Level 111 MEQ/L Carbon Dioxide Level 25.0 MEQ/L Anion Gap 7 MEQ/L Estimat Glomerular Filtration Rate 114 ML/MIN Indirect Bilirubin 0.1 MG/DL Total Creatine Kinase 49 U/L Triglycerides Level 94 MG/DL Cholesterol Level 152 MG/DL LDL Cholesterol 98 MG/DL HDL Cholesterol 35.3 MG/DL Cholesterol/HDL Ratio 4.30 RATIO Assessment and Plan Problem List: (1) CAD (coronary artery disease) ICD Codes: I25.10 - Atherosclerotic heart disease of [place] coronary artery without angina pectoris (2) ARF (acute renal failure) ICD Codes: N17.9 - Acute kidney failure, unspecified (3) Dehydration ICD Codes: E86.0 - Dehydration (4) Chest pain ICD Codes: R07.9 - Chest pain, unspecified Status: Acute (5) Syncope ICD Codes: R55 - Syncope and collapse Status: Acute Assessment and Plan 1.) CAD - atypical chest pain, start aspirin 81 mg qd, lipitor 40 mg hs, f/u with me 02/19/18, d/w patient 2.) Dehydration - improved after ivf 3.) ARF - resolved after ivf Problem Qualifiers (1) Chest pain: Qualified Codes: R07.9 - Chest pain, unspecified (2) Syncope: Qualified Codes: R55 - Syncope and collapse Saran Duran MD February 15, 2018 10:31
--- NOTE | 2018-02-15 11:15 | HHI.PR ---
Subjective Remarks The patient is in bed, says he is feels very anxious. Says he did not sleep for the past 4 nights. Says he has bipolar disorder but does not take any medications. No chest pain at this time. No shortness of breath. No seizures. Patient is also complaining of right knee pain and also right ankle pain says after she fell. Says he is not able to ambulate. We will do x-rays. With palpitations on and off. His blood pressures also elevated when he is anxious. Denies new motor deficit or change in vision. No focal deficit. Objective Vitals Vital Signs Date Time Temp Pulse Resp B/P (MAP) Pulse Ox O2 Delivery O2 Flow Rate FiO2 02/15/18 00:00 80 02/15/18 00:00 81 02/14/18 23:00 83 02/14/18 22:00 87 02/14/18 21:00 93 02/14/18 20:00 91 18 140/71 (94) 96 02/14/18 20:00 93 02/14/18 20:00 91 02/14/18 19:00 104 02/14/18 18:00 91 02/14/18 16:15 98.0 85 18 141/88 (105) 98 02/14/18 16:00 90 110/60 02/14/18 14:28 87 20 132/70 (90) 97 Nasal Cannula 2.00 02/14/18 14:00 90 20 97 Nasal Cannula 02/14/18 13:58 97 Nasal Cannula 2.00 02/14/18 13:49 98.3 97 20 143/84 (103) 99 I/O 02/14/18 02/14/18 02/14/18 02/15/18 02/15/18 02/15/18 07:00 15:00 23:00 07:00 15:00 23:00 Intake Total 1720 ml Output Total 2425 ml Balance -705 ml Intake Oral 720 ml IV Total 1000 ml Output Urine Total 2425 ml Result Diagram: 02/15/18 0537 02/15/18 0537 Imaging Last Impressions Head CT 02/14/18 0000 Signed Impressions: Service Date/Time: Wednesday, February 14, 2018 14:05 - CONCLUSION: 1. No acute intracranial abnormality identified. Chuckie Pacheco MD Chest X-Ray 02/14/18 0000 Signed Impressions: Service Date/Time: Wednesday, February 14, 2018 14:43 - CONCLUSION: 1. No acute cardiopulmonary disease. Ryan Doshi MD Cervical Spine CT 02/14/18 0000 Signed Impressions: Service Date/Time: Wednesday, February 14, 2018 14:05 - CONCLUSION: 1. No acute cervical spine abnormality is identified. 2. There is degenerative disc disease at C5-C6 and C6-C7. El Jarrell MD Carotid Artery Ultrasound 02/14/18 0000 Signed Impressions: Service Date/Time: Wednesday, February 14, 2018 17:17 - CONCLUSION: Unremarkable carotid ultrasound for patient's age. Bereket Negrete MD Objective Remarks GENERAL: This is a well-nourished, well-developed patient, in no apparent distress. CARDIOVASCULAR: Regular rate and rhythm without murmurs, gallops, or rubs. RESPIRATORY: Fair air entry bilaterally. No wheezes, rales, or rhonchi. GASTROINTESTINAL: Abdomen soft, non-tender, nondistended. Positive bowel sounds MUSCULOSKELETAL: Extremities without clubbing, cyanosis, or edema. Pedal pulses appreciated NEUROLOGICAL: Awake and alert. Moves all extremity. Normal speech.no focal neurological deficit A/P Assessment and Plan CAD - atypical chest pain, s/p cardiac cath by Dr Ayers cardio, appreciaterecs. Start aspirin 81 mg qd, Lipitor 40 mg hs, f/u with Dr Ayers 02/19/18 Dehydration - improved after IVF ARF - resolved after ivf. Monitor kidney function Syncope and fall carotid US normal CT head normal reviewed CXR normal EEG pending 2D ECho pending Patient fell and says he has pain in his right angkle and knee says not able to walk Will do X rays right knee and ankle Bipolar disorder patient says he is not taking meds However requesting anxiety meds Patient says he was not able to sleep for the past 4 nights Seems with manic episode/ euphoria at this time/ Will consult psych for evaluation Lilliana Prieto MD February 15, 2018 11:15
[2018-02-15] MEDS: SODIUM CHLORIDE 0.9% FLUSH 10 ML FLUSH IV FLUSH SCH ×2 (12:38→20:59)
--- NOTE | 2018-02-15 14:20 | EKG ---
Date Performed: 02/15/2018 Time Performed: 04:08:46 PTAGE: 47 years EKG: Sinus rhythm Normal ECG Since the PREVIOUS TRACING , no significant change noted PREVIOUS TRACIN02/14/2018 16.33 DOCTOR: Evelina Terrazas Interpretating Date/Time 02/15/2018 14:17:19
--- NOTE | 2018-02-15 14:21 | EKG ---
Date Performed: 02/14/2018 Time Performed: 13:50:22 PTAGE: 47 years EKG: Sinus rhythm MINIMAL VOLTAGE CRITERIA FOR LVH, CONSIDER NORMAL VARIANT BORDERLINE ECG Since the PREVIOUS TRACING , no significant change noted PREVIOUS TRACIN01/28/2014 16.18 DOCTOR: Evelina Terrazas Interpretating Date/Time 02/15/2018 14:17:39
--- NOTE | 2018-02-15 14:21 | EKG ---
Date Performed: 02/14/2018 Time Performed: 16:33:50 PTAGE: 47 years EKG: Sinus rhythm Normal ECG Since the PREVIOUS TRACING , no significant change noted PREVIOUS TRACIN02/14/2018 13.50 DOCTOR: Evelina Terrazas Interpretating Date/Time 02/15/2018 14:17:27
[2018-02-15] MEDS: LORazepam 0.5 MG TAB PO PRN ×2 (14:54→21:43)
[2018-02-15] MEDS ORDERED: METO25TA3 PO (14:56)
[2018-02-15] MEDS ORDERED: ATOR40TA16 PO (14:56)
[2018-02-15] MEDS ORDERED: ECASA81 PO (14:56)
--- NOTE | 2018-02-15 14:57 | HHI.DS ---
Discharge Summary Admission Date February 14, 2018 at 15:56 Discharge Date: February 16, 2018 Admitting Diagnosis chest pain, syncope (1) JUAN JOSE (generalized anxiety disorder) ICD Code: F41.1 - Generalized anxiety disorder (2) CAD (coronary artery disease) ICD Code: I25.10 - Atherosclerotic heart disease of [place] coronary artery without angina pectoris (3) Dehydration ICD Code: E86.0 - Dehydration (4) Major depression, recurrent, chronic ICD Code: F33.9 - Major depressive disorder, recurrent, unspecified Status: Acute (5) Bipolar disorder ICD Code: F31.9 - Bipolar disorder, unspecified Status: Acute (6) Anxiety disorder ICD Code: F41.9 - Anxiety disorder, unspecified Status: Acute Procedures none Brief History - From Admission 47-year-old male with significant psychiatry history presented to the ED today with chest pain and syncope event. Patient was doing mowing the lawn when he developed chest pain, lasted for a few minutes patient felt dizzy, the pain was more in the center toward the right 7-8 out of 10 More of heaviness pressure feeling, later on patient fainted for probably 30 seconds and then he woke up according to the witnesses who told the ED physician patient was having some possible jerking movement, his EKG showed some ST elevation in lead I and AVl, cardiology consulted from ED he did not think this is a STEMI alert as initially patient was presented with, but due to the syncope that might be an arrhythmia so patient is going to cath at this point by this time I am doing this dictation. When I saw the patient he was in next nebulizer due to the syncope and falling down, CT of the head showed no bleeding, no other associating symptoms has been reported by the patient, I also discussed with Dr. Duran the freelance photographer CBC/BMP: 02/15/18 0537 02/15/18 0537 Significant Findings Laboratory Tests Test 02/14/18 13:55 02/14/18 14:30 02/14/18 16:58 02/14/18 21:31 Blood Urea Nitrogen 23 MG/DL (7-18) Creatinine 2.14 MG/DL (0.60-1.30) Random Glucose 156 MG/DL (74-106) Albumin 3.3 GM/DL (3.4-5.0) Calcium Level 8.3 MG/DL (8.5-10.1) Chloride Level 110 MEQ/L (98-107) Carbon Dioxide Level 20.6 MEQ/L (21.0-32.0) Estimat Glomerular Filtration Rate 33 ML/MIN (>89) Troponin I LESS THAN 0.02 NG/ML LESS THAN 0.02 NG/ML LESS THAN 0.02 NG/ML White Blood Count 13.5 TH/MM3 (4.0-11.0) Red Blood Count 4.44 MIL/MM3 (4.50-5.90) Neutrophils (%) (Auto) 84.1 % (16.0-70.0) Neutrophils # (Auto) 11.4 TH/MM3 (1.8-7.7) Activated Partial Thromboplast Time 23.8 SEC (24.3-30.1) Bedside Creatinine 2.1 MG/DL (0.6-1.3) Test 02/15/18 05:37 Red Blood Count 4.19 MIL/MM3 (4.50-5.90) Hematocrit 38.8 % (39.0-51.0) Monocytes (%) (Auto) 8.3 % (0.0-8.0) Random Glucose 201 MG/DL (74-106) Total Protein 5.6 GM/DL (6.4-8.2) Albumin 2.8 GM/DL (3.4-5.0) Calcium Level 8.0 MG/DL (8.5-10.1) Aspartate Amino Transf (AST/SGOT) 6 U/L (15-37) Chloride Level 111 MEQ/L (98-107) HDL Cholesterol 35.3 MG/DL (40.0-60.0) Imaging Last Impressions Knee X-Ray 02/15/18 0000 Signed Impressions: Service Date/Time: February 13:29 - CONCLUSION: 1. No acute bony abnormality of the right knee identified. Chuckie Pacheco MD Ankle X-Ray 02/15/18 0000 Signed Impressions: Service Date/Time: February 13:38 - CONCLUSION: 1. No acute bony abnormality of the right ankle identified. Chuckie Pacheco MD Head CT 02/14/18 0000 Signed Impressions: Service Date/Time: Wednesday, February 14, 2018 14:05 - CONCLUSION: 1. No acute intracranial abnormality identified. Chuckie Pacheco MD Chest X-Ray 02/14/18 0000 Signed Impressions: Service Date/Time: Wednesday, February 14, 2018 14:43 - CONCLUSION: 1. No acute cardiopulmonary disease. Ryan Doshi MD Cervical Spine CT 02/14/18 0000 Signed Impressions: Service Date/Time: Wednesday, February 14, 2018 14:05 - CONCLUSION: 1. No acute cervical spine abnormality is identified. 2. There is degenerative disc disease at C5-C6 and C6-C7. El Jarrell MD Carotid Artery Ultrasound 02/14/18 0000 Signed Impressions: Service Date/Time: Wednesday, February 14, 2018 17:17 - CONCLUSION: Unremarkable carotid ultrasound for patient's age. Bereket Negrete MD PE at Discharge GENERAL: This is a well-nourished, well-developed patient, in no apparent distress. CARDIOVASCULAR: Regular rate and rhythm without murmurs, gallops, or rubs. RESPIRATORY: Fair air entry bilaterally. No wheezes, rales, or rhonchi. GASTROINTESTINAL: Abdomen soft, non-tender, nondistended. Positive bowel sounds MUSCULOSKELETAL: Extremities without clubbing, cyanosis, or edema. Pedal pulses appreciated NEUROLOGICAL: Awake and alert. Moves all extremity. Normal speech.no focal neurological deficit Pt update on day of discharge Feels better today. Seen by psychiatry and stated on medications. Patient was advised to follow-up with [facility] to find if psychiatry doctor as outpatient. He is able to ambulate without any problems. He denies having any chest pain or shortness of breath no nausea vomiting no diarrhea or constipation. Patient feels comfortable to go home. Hospital Course CAD - atypical chest pain, s/p cardiac cath by Dr Ayers cardio, appreciate recs. Start aspirin 81 mg qd, Lipitor 40 mg hs, f/u with Dr Ayers 02/19/18 Dehydration - improved after IVF ARF - resolved after ivf. Monitor kidney function Syncope and fall carotid US normal CT head normal reviewed CXR normal EEGno seizures 2D ECho reviewed nl EF Patient fell prior to admission and says he has pain in his right ankle and knee says not able to walk. X rays right knee and ankle reviewed and no fracture. Patient is however able to walk now without any difficulties. Bipolar disorder patient says he is not taking meds However requesting anxiety meds Patient says he was not able to sleep for the past 4 nights Seems with manic episode/ euphoria at this time/ Will consult psych for evaluation Psych recommends celexa and clonazepam flori at [place] The patient was advised to follow up as OP at [facility] with PCP and also to find a psych Dr for follow up . Pt Condition on Discharge: Stable Discharge Disposition: Discharge Home Discharge Time: > 30 minutes Discharge Instructions DIET: Follow Instructions for: Heart Healthy Diet Activities you can perform: Regular-No Restrictions Follow up Referrals: Cardiology - 02/19/18 with Saran Duran MD PCP Follow-up - 2-3 Days New Medications: Metoprolol Tartrate (Metoprolol Tartrate) 25 Mg Tab 25 MG PO BID for Blood Pressure Management, #60 TAB [address] (Aspirin DR) 81 Mg Tabdr 81 MG PO DAILY for Blood Clot Prevention, #30 TAB Atorvastatin (Atorvastatin) 40 Mg Tab 40 MG PO HS for Cholesterol Management, #30 TAB Citalopram (Celexa) 20 Mg Tab 10 MG PO DAILY for anxiety, #30 TAB Clonazepam (Klonopin) 0.5 Mg Tab 0.5 MG PO Q8HR for anxiety, #90 TAB Lilliana Prieto MD February 15, 2018 14:56
[2018-02-15] MEDS ORDERED: hydrALAZINE HCL 10 MG TAB PO PRN (15:00)
[2018-02-15] MEDS ORDERED: ENALAPRILAT 2.5 MG/2 ML VIAL IV PUSH PRN (15:00)
[2018-02-15] MEDS ORDERED: NALOXONE HCL 0.4 MG/ML AMP IV PUSH PRN (15:00)
--- NOTE | 2018-02-15 15:00 | RADRPT ---
EXAM DATE/TIME: 02/15/2018 13:29 [facility] COMPARISON: CHEST SINGLE AP, February 14, 2018, 14:43. INDICATIONS : Syncope yesterday. MEDICAL HISTORY : many injuries to right knee, but no surgery SURGICAL HISTORY : right femur surgery in 2005 ENCOUNTER: Initial ACUITY: 2 days PAIN SCORE: 2/10 LOCATION: Right knee FINDINGS: There is an intramedullary birgit the distal femur. Graft the osseous structures of the right knee are i ntact. There is no joint effusion. The bony mineralization is within normal limits. CONCLUSION: 1. No acute bony abnormality of the right knee identified. Chuckie Pacheco MD on February 15, 2018 at 14:58 Board Certified Radiologist. This report was verified electronically.
--- NOTE | 2018-02-15 15:01 | RADRPT ---
EXAM DATE/TIME: 02/15/2018 13:38 [facility] COMPARISON: KNEE RIGHT LTD (1 OR 2 VWS), February 15, 2018, 13:29. INDICATIONS : Syncope yesterday. MEDICAL HISTORY : None. SURGICAL HISTORY : None. ENCOUNTER: Initial ACUITY: 2 days PAIN SCORE: 7/10 LOCATION: Right ankle FINDINGS: The ankle mortise is intact. The alignment is anatomic. The bony mineralization is within normal limi ts. CONCLUSION: 1. No acute bony abnormality of the right ankle identified. Chuckie Pacheco MD on February 15, 2018 at 14:58 Board Certified Radiologist. This report was verified electronically.
--- NOTE | 2018-02-15 18:13 | MG ---
cc: Jose Osborn MD, David J MD EKG [id number] A 47 year old man, chest pain, 15 second seizure, intermittent explosive disorder. INTERPRETATION: Diffuse beta rhythms are seen. The recording overall is synchronous and symmetric. Some movement artifact is noted. There were no hemisphere asymmetries. At times, he reaches a good 11 Hz symmetric posterior rhythm. A 9 Hz symmetric 60 microvolt posterior rhythm is seen at epoch 64. I do not see any epileptiform or seizure activity. No hemisphere asymmetries are noted. Hyperventilation was performed without significant change in the background. Photic stimulation was performed without significant posterior driving. The patient fell asleep but did not reach stage II sleep. There was some foot twitching seen, but that did not correlate with any seizure activity. IMPRESSION: Normal awake and sleep electroencephalogram. No evidence for a focal or diffuse abnormality. There was some twitching of the feet seen, but that did not correlate with any seizure activity. MD TIFFANY Casas/ , 05:59 PM , 06:12 PM
[2018-02-15] MEDS: METOPROLOL TARTRATE 25 MG TAB PO SCH (20:26)
[2018-02-15] MEDS ORDERED: ZOLPIDEM TARTRATE 5 MG TAB PO PRN (21:00)
[2018-02-16] VITALS (11 sets, daily range): BP systolic 141; BP diastolic 81; PULSE 56–72; RESP 16; O2SAT 98
[2018-02-16] MEDS ORDERED: ASPIRIN EC 81 MG TABEC PO SCH (09:00)
[2018-02-16] MEDS: METOPROLOL TARTRATE 25 MG TAB PO SCH (09:15)
--- NOTE | 2018-02-16 10:46 | PD.CARD.PN ---
Subjective Subjective Remarks c/o mild chest pain, in nad, alert Objective Medications Current Medications Medications (Trade) Dose Ordered Sig/Demond Route Start Time Stop Time Status Last Admin Nitroglycerin/ Dextrose 250 ml @ 1.5 mls/hr TITRATE ONCE IV 02/14/18 16:00 02/21/18 14:39 (Zofran Inj) 4 mg Q6H PRN IVP 02/14/18 15:30 ([place] 5-325 Mg) 1 tab Q4H PRN PO 02/14/18 15:30 02/14/18 18:20 ([place] 7.5-325 Mg) 1 tab Q4H PRN PO 02/14/18 15:30 02/15/18 20:26 (Morphine Inj) 4 mg Q3H PRN IV PUSH 02/14/18 15:30 (Narcan Inj) 0.4 mg UNSCH PRN IV PUSH 02/14/18 15:30 (NS Flush) 2 ml BID IV FLUSH 02/14/18 21:00 02/15/18 20:59 (NS Flush) 2 ml UNSCH PRN IV FLUSH 02/14/18 16:00 (D50w (Vial) Inj) 50 ml UNSCH PRN IV PUSH 02/14/18 19:30 (Glucagon Inj) 1 mg UNSCH PRN OTHER 02/14/18 19:30 (Ecotrin Ec) 81 mg DAILY PO 02/16/18 09:00 02/16/18 09:15 (Lipitor) 40 mg HS PO 02/16/18 21:00 (Ativan) 0.5 mg Q8HR PRN PO 02/15/18 15:00 02/15/18 21:43 (Apresoline) 10 mg Q6HR PRN PO 02/15/18 15:00 02/15/18 15:36 (Vasotec Inj) 2.5 mg Q6H PRN IV PUSH 02/15/18 15:00 (Ambien) 5 mg HS PRN PO 02/15/18 21:00 (Narcan Inj) 0.4 mg UNSCH PRN IV PUSH 02/15/18 15:00 (Lopressor) 25 mg Q12HR PO 02/15/18 21:00 02/16/18 09:15 Vital Signs / I&O Vital Signs Date Time Temp Pulse Resp B/P (MAP) Pulse Ox O2 Delivery O2 Flow Rate FiO2 02/16/18 06:16 62 02/16/18 04:53 67 02/16/18 04:00 72 16 141/81 (101) 98 02/16/18 03:00 56 02/16/18 02:00 60 02/16/18 01:00 62 02/16/18 00:00 68 02/16/18 00:00 66 02/15/18 23:00 72 02/15/18 22:00 84 02/15/18 21:42 16 02/15/18 21:00 84 02/15/18 21:00 84 02/15/18 20:43 96 Nasal Cannula 2.00 02/15/18 20:06 98.7 88 16 137/83 (101) 97 02/15/18 20:00 88 02/15/18 19:00 94 02/15/18 18:00 98 02/15/18 17:00 86 02/15/18 16:27 86 18 154/89 (110) 02/15/18 16:00 86 02/15/18 15:32 98.2 90 22 170/97 (121) 98 02/15/18 15:00 84 02/15/18 14:52 98.2 90 22 170/97 (121) 98 02/15/18 14:00 84 02/15/18 13:00 94 02/15/18 12:00 88 02/15/18 11:32 98.7 90 20 152/97 (115) 98 02/15/18 11:00 86 I/O 02/15/18 02/15/18 02/15/18 02/16/18 02/16/18 02/16/18 07:00 15:00 23:00 07:00 15:00 23:00 Intake Total 900 ml 240 ml Output Total 1845 ml 1550 ml Balance -945 ml -1310 ml Intake Oral 900 ml 240 ml Output Urine Total 1845 ml 1550 ml # Bowel Movements 2 Physical Exam GENERAL: SKIN: Warm and dry. HEAD: Normocephalic. EYES: No scleral icterus. No injection or drainage. NECK: Supple, trachea midline. No JVD or lymphadenopathy. CARDIOVASCULAR: Regular rate and rhythm without murmurs, gallops, or rubs. RESPIRATORY: Breath sounds equal bilaterally. No accessory muscle use. GASTROINTESTINAL: Abdomen soft, non-tender, nondistended. MUSCULOSKELETAL: No cyanosis, or edema. BACK: Nontender without obvious deformity. No CVA tenderness. Assessment and Plan Problem List: (1) CAD (coronary artery disease) ICD Codes: I25.10 - Atherosclerotic heart disease of [place] coronary artery without angina pectoris (2) ARF (acute renal failure) ICD Codes: N17.9 - Acute kidney failure, unspecified (3) Dehydration ICD Codes: E86.0 - Dehydration (4) Chest pain ICD Codes: R07.9 - Chest pain, unspecified Status: Acute (5) Syncope ICD Codes: R55 - Syncope and collapse Status: Acute Assessment and Plan 1.) CAD - atypical chest pain, start aspirin 81 mg qd, lipitor 40 mg hs, f/u with me 02/19/18, d/w patient 2.) Dehydration - improved after ivf 3.) ARF - resolved after ivf 4.) syncope - carotid us without significant stenosis, f/u echo Problem Qualifiers (1) Chest pain: Qualified Codes: R07.9 - Chest pain, unspecified (2) Syncope: Qualified Codes: R55 - Syncope and collapse Saran Duran MD February 16, 2018 10:46
--- NOTE | 2018-02-16 11:06 | PD.PSY.CON ---
Provisional Diagnosis Admission Date February 14, 2018 at 15:56 [place] I. Bipolar disorder, intermittent explosive disorder, generalized anxiety disorder [place]. Deferred [place] III. Hypertension, diabetes History of Present Illness Service Psychiatry Consult Requested By Medicine Reason for Consult Severe anxiety Primary Care Physician Unknown HPI Patient is a 47-year-old man, domiciled in [place] with his , part-time employed, on [employer], with extensive psychiatric history of bipolar disorder, intermittent explosive disorder, generalized anxiety disorder, multiple psychiatric hospitalizations, very poor impulse control, last hospitalization was at [facility] in December 2017, he had ECT during that hospitalization, prior suicidal attempts, he is not in psychotropics, medical history of borderline diabetes and hypertension, who presented to the ED today with chest pain and syncope event. Patient was doing mowing the lawn when he developed chest pain, lasted for a few minutes patient felt dizzy, the pain was more in the center toward the right 7-8 out of 10 More of heaviness pressure feeling, later on patient fainted for probably 30 seconds and then he woke up according to the witnesses who told the ED physician patient was having some possible jerking movement. Admitted due to CAD - atypical chest pain, s/p cardiac cath by Dr Ayers cardio, [facility]. Start aspirin 81 mg qd, Lipitor 40 mg hs, f/u with Dr Ayers 02/19/18. Consulted to psychiatry due to symptomatology of anxiety. On psychiatric evaluation the patient is calm, cooperative. Patient reports that he has been having difficulties with anxiety in the last days. The patient reports that he has a very short temper and anger management issues "and these anxiety is not helping". Patient states that he has been in several medical regimens for anxiety in the past, "the only thing that really helping a little bit was Xanax". The patient reports that he has been looking for outpatient psychiatrist unsuccessfully, every time that he calls a psychiatrist the next appointment is of months "and I do not want to wait". The patient reports that he has constant anxiety during the day, intrusive thoughts at night, he has difficulty sleeping sometimes, and also occasional panic attacks. Patient reports that he usually does not like to use psychotropics, he says that he does not want to be dependent on any medication, but he understand that he needs something. Patient denies depressive symptoms, he denies anhedonia, he denies hopelessness, he denies helplessness, he denies suicidal and was ideation, he denies visual and auditory hallucinations. The patient is oriented 3, no filtration of consciousness, no attention deficit. No agitation, no aggressive behavior present. He denies the use of illegal drugs and alcohol. Review of Systems Constitutional: DENIES: Diaphoretic episodes, Fatigue, Fever, Weight gain, Weight loss, Chills, Dizziness, Change in appetite, Night Sweats Endocrine: DENIES: Heat/cold intolerance, Polydipsia, Polyuria, Polyphagia Eyes: DENIES: Blurred vision, Diplopia, Eye inflammation, Eye pain, Vision loss , Photosensitivity, Double Vision Ears, nose, mouth, throat: DENIES: Tinnitus, Hearing loss, Vertigo, Nasal discharge, Oral lesions, Throat pain, Hoarseness, Ear Pain, Running Nose, Epistaxis, Sinus Pain, Toothache, Odynophagia Cardiovascular: DENIES: Chest pain, Palpitations, Syncope, Dyspnea on Exertion , PND, Lower Extremity Edema, Orthopnea, Claudication Gastrointestinal: DENIES: Abdominal pain, Black stools, Bloody stools, Constipation, Diarrhea, Nausea, Vomiting, Difficulty Swallowing, Anorexia Genitourinary: DENIES: Sexual dysfunction, Urinary frequency, Urinary incontinence, Urgency, Hematuria, Dysuria, Nocturia, Penile Discharge, Testicular Pain, Testicular Swelling Musculoskeletal: DENIES: Joint pain, Muscle aches, Stiffness, Joint Swelling, Back pain, Neck pain Integumentary: DENIES: Abnormal pigmentation, Nail changes, Pruritus, Rash Hematologic/lymphatic: DENIES: Bruising, Lymphadenopathy Immunologic/allergic: DENIES: Eczema, Urticaria Neurologic: DENIES: Abnormal gait, Headache, Localized weakness, Paresthesias, Seizures, Speech Problems, Tremor, Poor Balance Psychiatric: DENIES: Anxiety, Confusion, Mood changes, Depression, Hallucinations, Agitation, Suicidal Ideation, Homicidal Ideation, Delusions Past Family Social History Coded Allergies: No Known Allergies (Unverified Allergy, Unknown, 02/14/18) Discontinued Scripts Clonazepam (Klonopin) 1 Mg Tab, 1 MG PO TID for Mental Health for 7 Days, TAB 0 Refills Do not combine with alcohol! Prov:Jose Lou MD 01/04/17 Fluoxetine (Prozac) 10 Mg Cap, 30 MG PO DAILY for Mental Health for 7 Days, CAP 3 Refills Prov:Jose Lou MD 01/04/[address] (Divalproex DR) 500 Mg Tabdr, 500 MG PO BID for Mental Health for 7 Days, TAB 3 Refills Prov:Jose Lou MD 01/04/17 Current Medications Medications (Trade) Dose Ordered Sig/Demond Route Start Time Stop Time Status Last Admin Nitroglycerin/ Dextrose 250 ml @ 1.5 mls/hr TITRATE ONCE IV 02/14/18 16:00 02/21/18 14:39 (Zofran Inj) 4 mg Q6H PRN IVP 02/14/18 15:30 ([place] 5-325 Mg) 1 tab Q4H PRN PO 02/14/18 15:30 02/14/18 18:20 ([place] 7.5-325 Mg) 1 tab Q4H PRN PO 02/14/18 15:30 02/15/18 20:26 (Morphine Inj) 4 mg Q3H PRN IV PUSH 02/14/18 15:30 (Narcan Inj) 0.4 mg UNSCH PRN IV PUSH 02/14/18 15:30 (NS Flush) 2 ml BID IV FLUSH 02/14/18 21:00 02/15/18 20:59 (NS Flush) 2 ml UNSCH PRN IV FLUSH 02/14/18 16:00 (D50w (Vial) Inj) 50 ml UNSCH PRN IV PUSH 02/14/18 19:30 (Glucagon Inj) 1 mg UNSCH PRN OTHER 02/14/18 19:30 (Ecotrin Ec) 81 mg DAILY PO 02/16/18 09:00 02/16/18 09:15 (Lipitor) 40 mg HS PO 02/16/18 21:00 (Ativan) 0.5 mg Q8HR PRN PO 02/15/18 15:00 02/15/18 21:43 (Apresoline) 10 mg Q6HR PRN PO 02/15/18 15:00 02/15/18 15:36 (Vasotec Inj) 2.5 mg Q6H PRN IV PUSH 02/15/18 15:00 (Ambien) 5 mg HS PRN PO 02/15/18 21:00 (Narcan Inj) 0.4 mg UNSCH PRN IV PUSH 02/15/18 15:00 (Lopressor) 25 mg Q12HR PO 02/15/18 21:00 02/16/18 09:15 Family Psych History He has a mother with bipolar Social History Patient was born and raised in [place], he was in [place] with his , is partially employed, supported by [employer], he has a college degree Patient's Strengths (min. 2) Family support Physical Exam No tremors, no EPS, no psychomotor agitation or retardation, no gait disturbance Vital Signs Vital Signs Date Time Temp Pulse Resp B/P (MAP) Pulse Ox O2 Delivery O2 Flow Rate FiO2 02/16/18 06:16 62 02/16/18 04:00 16 141/81 (101) 98 02/15/18 20:43 Nasal Cannula 2.00 02/15/18 20:06 98.7 I/O 02/16/18 02/16/18 02/17/18 08:00 16:00 00:00 Intake Total 240 ml Output Total 1550 ml Balance -1310 ml Mental Status Examination Appearance: Appropriate Consciousness: Alert Orientation: x4 Motor Activity: Normal gait Speech: Unremarkable Language: Adequate Fund of Knowledge: Adequate Attention and Concentration: Adequate Memory: Unremarkable Mood: Appropriate Affect: Appropriate Thought Process & Associations: Intact Thought Content: Appropriate Hallucination Type: None Delusion Type: None Suicidal Ideation: No Suicidal Plan: No Suicidal Intention: No Homicidal Ideation: No Homicidal Plan: No Homicidal Intention: No Insight: Adequate Judgment: Adequate Assessment & Plan Problem List: (1) JUAN JOSE (generalized anxiety disorder) ICD Codes: F41.1 - Generalized anxiety disorder Assessment & Plan: On psychiatric evaluation today the patient reports symptoms of anxiety. Patient reports having anxiety most of the day, frequent panic attacks, difficulty sleeping at night due to intrusive thoughts. He denies depressive symptoms, denies bernabe and psychosis. He denies suicidal and homicidal ideation he denies visual and auditory hallucinations. The patient has history of anxiety, intermittent explosive disorder and bipolar disorder, patient has not been psychotropic regimen at the moment. He does not meet criteria for psychiatric admission at the moment. I will start the patient in Celexa 10 mg and clonazepam 0.5 mg 3 times daily. Patient has been looking for outpatient psychiatrist, he already have an appointment coming in the next months. Brief supportive psychotherapy of cycle patient provided. Consult appreciated. Assessment & Plan Estimated LOS: days Harman Salmon. MD February 16, 2018 11:06
[2018-02-16] MEDS ORDERED: clonazePAM 0.5 MG TAB PO SCH (14:00)
[2018-02-16] MEDS ORDERED: CELE20TA PO (14:39)
[2018-02-16] MEDS ORDERED: CLON.5 PO (14:39)
[2018-02-16] MEDS ORDERED: ATORVASTATIN 40 MG TAB PO SCH (21:00)
[2018-02-17] MEDS ORDERED: CITALOPRAM HYDROBROMIDE 20 MG TAB PO SCH (09:00)
== END 2018-02-16 14:50 | disposition home or self-care (01) | DRG 287 ==
LOC: NEPC 13:47 → NEDA 14:58 → OBSVTOIN 15:56 → HCIS 16:05
PROVIDERS: ADMIT Hospitalist; ATTEND Hospitalist
PROC: B2111ZZ Fluoroscopy of Multiple Coronary Arteries using Low Osmolar Contrast (ICD-10-PCS; principal; 2018-02-14)
PROC: 4A023N7 Measurement of Cardiac Sampling and Pressure, Left Heart, Percutaneous Approach (ICD-10-PCS; 2018-02-14)
PROC: B2151ZZ Fluoroscopy of Left Heart using Low Osmolar Contrast (ICD-10-PCS; 2018-02-14)
DX: I25.10 Atherosclerotic heart disease of native coronary artery without angina pectoris (principal); N17.9 Acute kidney failure, unspecified; I10 Essential (primary) hypertension; E86.0 Dehydration; F41.1 Generalized anxiety disorder; R55 Syncope and collapse; Y93.H9 Activity, other involving exterior property and land maintenance, building and construction; X58.XXXA Exposure to other specified factors, initial encounter; Y99.0 Civilian activity done for income or pay; F12.90 Cannabis use, unspecified, uncomplicated; M25.571 Pain in right ankle and joints of right foot; M25.561 Pain in right knee; Z81.8 Family history of other mental and behavioral disorders
CPT/HCPCS: 70450; 71045; 72125; 73560; 73600; 80048; 80053; 80061; 80076; 82550; 82565; 82948; 83735; 84100; 84484; 85025; 85610; 85730; 93005; 93458; 93880; 95819; 99152; C1769; C1893; J1644; J2250; J7030; Q9967